=== PATIENT | female | born 1995 | race African-American/Black ===

== ENCOUNTER 2021-02-07 11:56 | Emergency (ER) | payer MEDICAID ==
[~2021-02-07] VITALS: Ht 177.8 cm; Wt 96.0 kg
[2021-02-07 12:11] VITALS: BP 137/83
== END 2021-02-07 17:27 | disposition left against medical advice (07) ==
LOC: ER 11:56
DX: Z53.21 Procedure and treatment not carried out due to patient leaving prior to being seen by health care provider (principal)

== ENCOUNTER 2021-09-21 22:14 | Emergency (ER) | payer MEDICAID ==
[~2021-09-21] VITALS: Ht 177.8 cm; Wt 113.0 kg
[2021-09-21] MEDS ORDERED: KETOROLAC 60MG/2ML VIAL IM ONE (23:00)
[2021-09-21 23:20] VITALS: BP 133/91
[2021-09-22] MEDS ORDERED: AMOXICILLIN/POTASSIUM CLAVULANATE 875/125MG TAB PO ONE (00:45)
[2021-09-22 01:46] LABS: BASOPHILS % 0.4 % (0.0-2.0); EOSINOPHILS % 0.4 % (0.0-5.0); HEMATOCRIT. 39.4 % (36.0-48.0); LYMPHOCYTES % 13.9 % (20.0-50.0); MEAN CORPUSCULAR HEMOGLOBIN 28.6 pg (28.0-32.0); MEAN CORPUSCULAR VOLUME 86.8 fL (81.0-99.0); MEAN PLATELET VOLUME 8.3 fl (7.4-10.4); MONOCYTES % 3.6 % (2.0-8.0); NEUTROPHILS % 81.7 % (40.0-76.0); PLATELET 405 x1000/uL (130-400); RED BLOOD CELL COUNT 4.54 mill/uL (4.2-5.4)
[2021-09-22 01:55] LABS: CHLORIDE 108 mEq/L (98-107)
[2021-09-22] MEDS ORDERED: IBUP-2029 MT (02:20)
[2021-09-22] MEDS ORDERED: AMOX-424 MT (02:20)
== END 2021-09-22 02:39 | disposition home or self-care (01) ==
LOC: ER 22:14
DX: K04.7 Periapical abscess without sinus (principal); Z98.890 Other specified postprocedural states
CPT/HCPCS: 36415; 80053; 80307; 81025; 85025; 96372; 99283; J1885

== ENCOUNTER 2024-02-15 02:58 | Emergency (ER) | payer MEDICAID ==
[~2024-02-15] VITALS: Ht 177.8 cm; Wt 113.0 kg
[~2024-02-15 02:58] MED LIST: AMOX-424 MT; IBUP-2029 MT
[2024-02-15 03:04] VITALS: TEMP 98.5; O2SAT 97
[2024-02-15 03:09] VITALS: O2SAT 97
[2024-02-15] MEDS ORDERED: IBUP-2029 MT (05:38)
[2024-02-15] MEDS ORDERED: AMOX-494 MT (05:38)
[2024-02-15 05:50] VITALS: BP 151/105; PULSE 120; RESP 18
[2024-02-15] MEDS: KETOROLAC 30MG/ML VIAL IM ONE (05:50)
== END 2024-02-15 05:51 | disposition home or self-care (01) ==
LOC: ER 02:58
DX: J03.90 Acute tonsillitis, unspecified (principal); Z98.890 Other specified postprocedural states
CPT/HCPCS: 96372; 99283; J1885; Z7610

== ENCOUNTER 2024-10-31 17:56 | Emergency (ER) | payer MEDICAID ==
[~2024-10-31] VITALS: Ht 177.8 cm; Wt 117.0 kg
[~2024-10-31 17:56] MED LIST changes: +AMOX-494 MT
[2024-10-31 17:58] VITALS: PULSE 75; RESP 15; O2SAT 100
[2024-10-31 18:04] VITALS: BP 149/95; TEMP 36.8; O2SAT 97
== END 2024-10-31 20:24 | disposition left against medical advice (07) ==
LOC: ER 17:56
DX: M79.5 Residual foreign body in soft tissue (principal); C08.0 Malignant neoplasm of submandibular gland
CPT/HCPCS: 99281